=== PATIENT | female | born 1985 | race Caucasian/White ===

== ENCOUNTER 2024-07-07 19:37 | Emergency (ER) | payer BC, SELFPAY ==
--- NOTE | ~2024-07-07 | CT_ITS ---
EXAMINATION: CT abdomen pelvis w con DATE: 07/07/2024 22:14 INDICATION: Right upper quadrant abdominal pain. TECHNIQUE: Computed tomography (CT) of the abdomen and pelvis was performed with 100 mL Omnipaque 350 intravenous contrast. Automated exposure control and iterative reconstruction technique were employe d. The dose-length product was 816.03 mGy-cm. COMPARISON: CT abdomen and pelvis 02/13/2018, 12/14/17 FINDINGS: The visualized portions of lung bases demonstrate mild atelectasis. No pleural effusion. Th e heart size is normal. No pericardial effusion. There is a 6.2 x 3.2 cm mass involving the posterior aspect of right hepatic lobe with peripheral calcifications and numerous surgical clips. Right adren al gland is absent. The gallbladder, spleen, pancreas, and left adrenal gland are normal. There is vo lume loss of right kidney upper pole. Left kidney is normal. The periuterine veins and left ovarian v ein are enlarged, consistent with pelvic venous insufficiency. There are no dilated loops of bowel. T he appendix is normal. There is mild aortocaval and left para-aortic lymphadenopathy. For example, an aortocaval node measures 1.7 x 1.2 cm. There is no ascites. There is mild lumbar spondylosis. IMPRESSION: 1. Mass involving posterior aspect of right hepatic lobe, which may be old hematoma and/or treated ma lignancy. 2. Mild aortocaval and left para-aortic lymphadenopathy. Reviewed, dictated and finalized at location A. IMPRESSION: 1. Mass involving posterior aspect of right hepatic lobe, which may be old jake summer and/or treated malignancy. 2. Mild aortocaval and left para-aortic lymphadenopathy.
[2024-07-07 19:38] VITALS: BP 159/101; PULSE 57; RESP 16; TEMP 36.3; O2SAT 97
--- NOTE | 2024-07-07 19:45 | PC.NURSE ---
Pt continually taking off pulse ox and throwing it on the ground, saying I cant do this, you need to get me back right now. I need a hydrocortisone shot now. This rn explained that we currently do not have any open beds and are moving patient as fast as we can.
[2024-07-07 20:40] LABS: Basophils Percent Auto 0.2 % (0.2-1.2); Eosinophils Absolute Auto 0.1 K/mm3 (0-0.3); Eosinophils Percent Auto 1.1 % (0-4.4); Hematocrit 47.6 % (37.0-47.0); Hemoglobin 15.7 g/dL (12.0-15.0); Immature Granulocyte Absolute 0.03 K/mm3 (0.00-0.031); Immature Granulocyte Percent A 0.4 % (0-0.5); Mean Corpuscular Hemoglobin 31.7 pg (26-34); Monocytes Absolute Auto 0.5 K/mm3 (0.1-0.6); Monocytes Percent Auto 5.6 % (2.6-8.5); Neutrophils Absolute Auto 5.8 K/mm3 (1.3-6.7); Neutrophils Percent Auto 72.7 % (45.5-73.1); Platelet Count Result 236 k/mm3 (150-375); Red Blood Count 4.96 M/mm3 (4.2-5.4); Red Cell Distribution Width 15.7 % (11.5-14.5)
[2024-07-07 20:50] LABS: Alanine Aminotransferase 70 U/L (6-35); Alkaline Phosphatase 94 U/L (38-126); Anion Gap 14 mmol/L (4-12); Aspartate Amino Transferase 61 U/L (14-36); Bilirubin,Total 0.6 mg/dL (0.2-1.3); Blood Urea Nitrogen 13 mg/dL (7-17); Calcium 9.3 mg/dL (8.4-10.2); Carbon Dioxide 30 mmol/L (22-30); Chloride 96 mmol/L (98-107); Estimated CRCL calculation 87 ml/min; Estimated Glomerular Filt Rate > 60; Glucose 131 mg/dL (65-110); Lipase 101 U/L (23-300); Potassium 3.8 mmol/L (3.4-5.0); Sodium 140 mmol/L (137-145)
--- NOTE | 2024-07-07 21:33 | ED.GENADULT ---
HPI - General Adult General Chief complaint: Abdominal Pain Stated complaint: abd pain Time Seen by Provider: 07/07/24 20:51 History of Present Illness HPI narrative: This is a 38-year-old female history of stage IV renal carcinoma presenting for abdominal. Pain is located in the epigastric area and radiates to her right side. It is a twisting stabbing pain. It is 10 out 10 intensity constant. She has having this the entire day. She has never had pain like this before there are no exacerbating alleviating factors. Patient states she has had nausea and vomiting. States she has had fevers over 100 while nauseas and vomiting. She denies chest pain difficulty breathing diarrhea or urinary symptoms. Patient has Tylenol and oxycodone at home which she is taking with no relief. Last bowel movement was earlier. Patient is a daily marijuana user. Related Data Allergies Allergy/AdvReac Type Severity Reaction Status Date / Time cephalexin Allergy Unknown Itching Verified 07/07/24 19:44 fish oil Allergy Unknown Itching Verified 07/07/24 19:44 Penicillins Allergy Unknown Itching Verified 07/07/24 19:44 diclofenac AdvReac Nausea Verified 07/07/24 19:44 [facility] Family History Family History (Updated 03/19/19 @ 11:46 by DOCTOR UNKNOWN) Mother Family history of osteoporosis Asthma Grandparent Depression Hypertension Family history of coronary artery disease Diabetes mellitus Family history of malignant neoplasm Family history of malignant neoplasm of breast Father Family history of glaucoma Hypertension Family history of elevated blood lipids Family history of cardiovascular disease Sibling Asthma Family history of lung disease Social History Social History Smoking status: Former smoker Second hand tobacco smoke exposure: No Smoking end date: 11/04/16 Alcohol intake: current Exam Narrative: APPEARANCE: No apparent distress. Head: atraumatic. EYES: EOMI, NOSE: Atraumatic NECK: Trachea midline RESPIRATORY: No increased rate of breathing clear to auscultation CARDIOVASCULAR: RRR, ABDOMINAL: Soft nontender no guarding or rebound MUSCULOSKELETAl: No obvious deformities NEURO: Alert. Moving 4/4 extremities SKIN:: Warm, dry. Normal color PSYCHIATRIC: Normal affect Course Vital Signs Vital signs: Vital Signs Temperature 97.4 F L 07/07/24 19:38 Pulse Rate 57 L 07/07/24 19:38 Respiratory Rate 16 07/07/24 19:38 Blood Pressure 159/101 H 07/07/24 19:38 Pulse Oximetry 97 09/03/24 19:38 Oxygen Delivery Room Air 07/07/24 19:38 Temperature 97.4 F L 07/07/24 19:38 Pulse Rate 57 L 07/07/24 19:38 Respiratory Rate 16 07/07/24 19:38 Blood Pressure 159/101 H 07/07/24 19:38 Pulse Oximetry 97 07/07/24 19:38 Oxygen Delivery Room Air 07/07/24 19:38 Medical Decision Making MDM Narrative Medical decision making narrative: -Course: 38-year-old female presenting with abdominal pain nausea and vomiting. Her abdominal exam is benign. Her vital signs are stable. Afebrile no white count. CT abdomen pelvis showed treated metastatic cancer to liver and some para-aortic lymphadenopathy. Laboratory studies unremarkable. Urine drug screen positive for cannabinoids. On re-evaluation the patient is now resting comfortably with no discomfort. She is requesting water. She is concerned this might be a side effect of chemotherapy. Instructed her to follow-up with her oncologist for further management. Patient discharged with return precautions. -DDX includes but is not limited to: -Co-morbidities complicating care: -Social determinants of health: -External Chart Review: -Hx from independent Sources: -Independent interpretation of studies: -Discussion of Management/Consultants: -Dx tests considered but not ordered: -Procedures: -Interventions: -Shared decision making / Disposition: -RX Vital Signs Vital Signs: Vital Signs Temperatu
[2024-07-07 21:37] VITALS: BP 149/123; PULSE 63; RESP 25; O2SAT 94
[2024-07-07] MEDS: HYDROmorphone HCL INJ (*CRX) 1 MG/ML SYR IV PUSH (21:39)
[2024-07-07 21:40] LABS: BEDSIDEPREGUCG Negative
[2024-07-07] MEDS: FAMOTIDINE 20 MG/2 ML VIAL IV PUSH (21:40)
[2024-07-07] MEDS: ONDANSETRON INJ 4 MG/2 ML VIAL IV PUSH (21:40)
[2024-07-07] MEDS: SODIUM CHLORIDE 0.9% IV 2,000 ML 999 ML IV CONT (21:41)
[2024-07-07 21:56] LABS: Add Urine Microscopic? YES; Appearance Urine Clear (Clear); Bacteria Urine Rare /hpf; Bilirubin Urine Negative (Negative); Blood Urine Negative (Negative); Color Urine Yellow (Yellow); Glucose Urine UA Negative (Negative); Ketones Urine 2+ mg/dL (Negative); Leukocyte Esterase Ur Negative LEU/UL (Negative); Nitrate Urine Negative (Negative); Non Pathogenic Casts 0-2; Protein Urine 1+ mg/dL (Negative); RBC Urine 0-2 /hpf (0-2); Specific Grav Ur 1.025 (1.001-1.035); Squamous Epithelial Cell Urine Occasional /hpf (Few); WBC Urine 0-5 /hpf (0-3); pH Urine 7.5 (5.0-9.0)
[2024-07-07 22:08] LABS: Amphetamine Screen Urine Negative (Negative); Barbiturate Screen Urine Negative (Negative); Benzodiazepines Screen Urine Negative (Negative); Cannabinoid Screen Urine Positive (Negative); Cocaine Screen Urine Negative (Negative); Methadone Screen Urine Negative (Negative); Opiate Screen Urine Negative (Negative); Phencyclidine Screen Urine Negative (Negative)
[2024-07-07 23:15] VITALS: BP 168/90; PULSE 60; RESP 19; O2SAT 97
== END 2024-07-07 23:25 | disposition home or self-care (01) ==
PROVIDERS: Emergency Provider Emergency Medicine; PCP Family Medicine
DX: R10.13 Epigastric pain (principal); C64.9 Malignant neoplasm of unspecified kidney, except renal pelvis; C78.7 Secondary malignant neoplasm of liver and intrahepatic bile duct; Z87.891 Personal history of nicotine dependence; Z79.60 Long term (current) use of unspecified immunomodulators and immunosuppressants
CPT/HCPCS: 36415; 74177; 80053; 80307; 81001; 81025; 83690; 85025; 96361; 96374; 96375; 99284; J1170; J2405; J7030; Q9967